=== PATIENT | male | born 1950 | race Caucasian/White ===

== ENCOUNTER → 2020-07-26 | Outpatient (CLI) | payer OTHER ==
[~2020-07-26] MED LIST: ALTACE10 MG PO; ASPIRIN325 PO; CARVEDILOL12.5 MG PO; CRESTOR10 MG PO; CRESTOR20 MG PO; EFFIENT10 MG PO; HYDROCHLOROTHIA25 M2 PO; METFORMIN HCL500 MG PO; POTASSIUM20 PO; WELCHOL 625 MG625 M1 PO; ZETIA10 MG PO
== END ==
LOC: SJCVC 14:33
PROVIDERS: ATTEND Internal Medicine Cardiovascular Disease
DX: I25.10 Atherosclerotic heart disease of native coronary artery without angina pectoris (principal); I10 Essential (primary) hypertension; E78.00 Pure hypercholesterolemia, unspecified; R06.00 Dyspnea, unspecified; E78.5 Hyperlipidemia, unspecified; Z96.652 Presence of left artificial knee joint; Z95.5 Presence of coronary angioplasty implant and graft; Z88.0 Allergy status to penicillin; Z79.82 Long term (current) use of aspirin; Z79.899 Other long term (current) drug therapy; Z86.16 Personal history of COVID-19; Z87.891 Personal history of nicotine dependence; Z82.49 Family history of ischemic heart disease and other diseases of the circulatory system

== ENCOUNTER → 2020-09-09 | Outpatient (CLI) | payer OTHER | LOC: SJCVCIMAG 08:03 | PROVIDERS: ATTEND Internal Medicine Cardiovascular Disease | DX: I08.0 Rheumatic disorders of both mitral and aortic valves (principal); R06.00 Dyspnea, unspecified; I25.10 Atherosclerotic heart disease of native coronary artery without angina pectoris; I10 Essential (primary) hypertension; Z88.0 Allergy status to penicillin; Z95.5 Presence of coronary angioplasty implant and graft; Z79.899 Other long term (current) drug therapy ==

== ENCOUNTER 2020-09-16 06:57 | Observation (INO) | payer OTHER ==
[2020-09-16] VITALS (12 sets, daily range): BP systolic 123–156; BP diastolic 43–69
[~2020-09-16] VITALS: Ht 175.3 cm; Wt 103.0 kg
[2020-09-16] MEDS ORDERED: FISH OIL 1,001000 M3 PO (07:31)
[2020-09-16] MEDS ORDERED: VITAMIN B-1100 M2 PO (07:35)
[2020-09-16] MEDS ORDERED: VITAMIN D-40010 MCG PO (11:17)
--- NOTE | 2020-09-16 17:57 | NUR ---
PT. ARRIVED AT THE FLOOR AROUND 1100; PT. AOX4; NO C/O PAIN; EDUCATED ABOUT BED REST UNTIL 1300; ST. UNDERSTANDING; R. GROIN INCISION C/D/I; EDUCATED ABOUT HOLDING PRESSURE WHEN COUGHING OR LAGHING; ST. UNDERSTANDING; SR ON THE MONITOR; EDUCATED ABOUT FALL PRECAUTIONS; ST. UNDERSTANDING; ADMISSION PERFORMED; OFF OF BED REST AT 1300; ABLE TO AMBULATE WITHIN THE ROOM; NO HEMATOMA NOTICED OVER R. GROIN SIDE; MONITORING; VS WNL; ASSESSMENT CHARGED; FOLLOWING POC; WILL PASS ON REPORT;
[2020-09-17 04:45] VITALS: BP 142/66
[2020-09-17 05:03] LABS: HEMATOCRIT 38.2 % (42.0-52.0); HEMOGLOBIN 12.9 gm/dL (14.0-18.0); MCH 30.4 pg (26.0-34.0); MCHC 33.9 g/dL (28.0-37.0); MCV 89.8 fL (80.0-100.0); RBC 4.26 mil/uL (4.50-6.00); RDW 13.3 % (10.5-14.5); WBC 10.9 thou/uL (4.0-11.0)
[2020-09-17 05:22] LABS: ALBUMIN 3.7 g/dL (3.4-5.0); ANION GAP 9 mmol/L (7-16); BUN 12 mg/dL (7-18); CHLORIDE 103 mmol/L (98-107); CO2 26 mmol/L (21-32); CREATININE 0.9 mg/dL (0.7-1.3); GLUCOSE 137 mg/dL (74-106); POTASSIUM 4.1 mmol/L (3.5-5.1); SGOT 21 U/L (15-37); SGPT 44 U/L (16-63); SODIUM 138 mmol/L (136-145); TOTAL BILIRUBIN 0.6 mg/dL (0.2-1.0); TROPONIN-I <0.06 ng/mL (<0.06)
--- NOTE | 2020-09-17 07:55 | EKG ---
[address] [place] [address] ELECTROCARDIOGRAM REPORT Name: JIM HOPE Room #: 208-[facility] M.R.#: [id number] Admission: 09/16/20 Attend Phys: Pito Harrison MD, Discharge: Date of : 54 Report #: [id number] [facility] [place] Test Date: 2020-09-17 Test Time: 07:14:31 Pat Name: JIM HOPE Department: Room: 208 P Gender: M [employer] Education Kindergarten Teacher: HARRISON : 1950 Requested By: Fernanda Hua Order Number: [id number] MD: Miguel A Najera Measurements Intervals [place] Rate: 64 P: 10 [place]: 192 QRS: -20 QRSD: 91 T: 50 QT: 415 QTc: 428 Interpretive Statements Sinus rhythm Borderline left axis deviation Compared to ECG 08/25/2015 07:49:49 No significant change was found Electronically Signed On 09-17-2020 7:55:40 CDT by Miguel A Najera [email or web address] <ELECTRONICALLY SIGNED> By: Miguel A Najera MD, [facility] 09/17/20 0755 3 3 Miguel A Najera MD, [facility] /EPI
[2020-09-17 11:10] VITALS: BP 186/72
--- NOTE | 2020-09-17 11:11 | NUR ---
PT DISCHARGING HOME WITH , DISCHARGE INSTRUCTION READ AND GAVE TO PT. NO QUESTIONS AT THIS TIME, IV CATH REMOVED, CATH IN TACT WITH NO SIGNS OF INFECTION AT THIS TIME. R GROIN SITE C.D.I. PT LEFT UNIT VIA W/C
--- NOTE | 2020-09-17 11:39 | NUR ---
discussed during los, dc today. no anticipated dc needs. dcp home with .
--- NOTE | 2020-09-17 16:08 | CATHLAB ---
[facility] [place] [address] INVASIVE PROCEDURE REPORT Name: JIM HOPE Room #: 208-P [facility] Benjamin MBernaRBerna#: [id number] Admission: 09/16/20 Attend Phys: Pito Harrison MD, Discharge: 09/17/20 Date of : 54 Report #: [id number] THIS REPORT FOR: cc: Gualberto Arteaga MD, James A. MD Mancuso, Gerald M. MD [facility] ~ APPROVED REPORT Study performed: 09/16/2020 08:02:53 Patient Details Patient Status: Out-Patient Room #: The patient is a 69 year-old male Event Personnel Pito Harrison Professional Advisor, Noah Aj RN RN, Fabian Carreno RTR Scrub, Amaya Dominguez RTR Monitor, Maria E Martinez RTR Chess Instructor Procedures Performed Art Access - R femoral artery* Left Heart Cath w/or w/o Coronaries [id number] [facility] Aortogram Abdominal Peripheral Angio 949061 [address] Place w/wo Plasty Single RCA 450795 23972 Initial Mod Sed Same Phys/QHP Gr5y 151510 80762 Mod Sed Same Phys/QHP Ea 412169 Hemostasis w/ Mynx Indication Chest pain Procedure Narrative The Right Groin^ was infiltrated with 1% Lidocaine subcutaneous anesthesia. A PINNACLE 6FR Sheath #[id number] sheath was inserted into the RFA^. Coronary angiography was performed using coronary diagnostic catheters. The right coronary system was accessed and visualized with a JR4 catheter. The left coronary system was accessed and visualized with a JL4 catheter. The left ventricle was accessed and visualized with a PIGTAIL catheter. Left ventriculogram was performed in 30 degree projection. An aortogram of the abdominal aorta was performed. Closure device was deployed with a 6 Fr MYNXGRIP 6/7F #[id number]. The patient tolerated the procedure well and there were no complications associated with the procedure. There was no hematoma. Intraoperative Conscious Sedation [facility] [address] [place] [address] INVASIVE PROCEDURE REPORT Name: HERMINIAJIM Room #: 208-P [facility] IN [facility].#: [id number] Admission: 09/16/20 Attend Phys: Pito Harrison, Discharge: 09/17/20 Date of : 54 Report #: [id number] Sedation start time: 844 Case end Time: 957 Fentanyl 50 mcg Versed 1 mg Fluoro Time: 10.09 minutes Dose: DAP 18265.90 cGycm2 2493 mGy Contrast Type and Amount: Omnipaque 185 ml Hemodynamics The aortic pressure is 121/47 mmHg with a mean of 64 mmHg. The left ventricular pressure is 130/13 mmHg with a mean of mmHg. The left ventricular end diastolic pressure is 22 mmHg. PCI Technique Lesion Percutaneous coronary intervention was performed on the mid right coronary artery. A LAUNCHER 6FR 3DRC #[id number] Guide Catheter was used to engage the ostium. A Luge Wire .014 x 182CM #[id number] Interventional Guidewire was used to cross the lesion. BALLOON DILATION A Balloon catheter Sprinter OTW 2.75 x 12 #[id number] was inserted and inflated up to 12.00atm for 26seconds. Additional Inflation: 14.00atm for 8seconds. Additional Inflation: 10.00atm for 10seconds. ADDITIONAL INFLATIONS WERE 20 HANSA/27 SECS/MINS AND 18 HANSA/27 SECS/MINS STENT DEPLOYMENT A drug-eluting stent RESOLUTE KATIE OTW 3.0 X 12 #[id number] was inserted and inflated up to 18.00atm for 33seconds. POST STENT DEPLOYMENT BALLOON DILATION A Balloon catheter TREK NC OTW 3.25 X 12 #[id number] was inserted and inflated up to 24.00atm for 27seconds. Additional Inflation: 24.00atm for 25seconds. Additional Inflation: 24.00atm for 31seconds. PCI Technique Lesion 2 Percutaneous Coronary Intervention was performed on the proximal right coronary artery. A LAUNCHER 6FR 3DRC #[id number] Guide Catheter was used to engage the ostium. A Luge Wire .014 x 182CM #[id number] Interventional Guidewire was used to cross the lesion. Balloon Dilation A Balloon catheter TREK NC OTW 3.25 X 12 #[id number] was inserted and inflated up to 24atm for 31seconds. Stent Deployment A drug-eluting stent RESOLUTE KATIE OTW 3.5 X 8 #[id number] was inserted [address] [address] INVASIVE PROCEDURE REPORT Name: JIM HOPE Room #: 208-P [facility] [place] M.R.#: [id number] Admission: 09/16/20 Attend Phys: Pito Harrison, Discharge: 09/17/20 Date of : 54 Report #: [id number] and inflated up to 20atm for 33seconds. Post Stent Deployment Balloon Dilation A Balloon catheter TREK NC OTW 3.75 X 12 #[id number] was inserted and inflated up to 20atm for 26seconds. Additional Inflation: 22atm for 19seconds. Conclusion #1. Successful PTCA stent of a subtotaled mid RCA in-stent restenosis. Placement of a 3.5 x 8 resolute stent postdilated with a noncompliant 3.75 to 3.8 mm KASHMIR grade III flow. #2 successful PTCA stent of in-stent restenosis in the distal third of this dominant right coronary artery 90% to 20% with placement of a 3 oh by 12 resolute Katie postdilated with a 3.259 compliant to 3.4 mm KASHMIR grade III flow in a large dominant vessel with moderate distal disease. #3 left main mildly calcified giving rise to LAD and circumflex. #4 the LAD is moderately calcified with 4050% proximal irregularities and a smaller attenuated vessel distally which stops short of the apex. #5 a ramus branch is noted with moderate disease and moderate distribution then collateral filling to the PDA via the ramus branch. Competitively filling this PDA #6 small nondominant circumflex mild disease #7 normal left jugular size and systolic function EF 60%. No wall motion abnormality is noted. #8 normal caliber abdominal aorta no evidence of aneurysm. Recommendations and plan: Continue aggressive risk factor modification dual antiplatelet therapy has been reinitiated for these 2 areas of in-stent restenosis which were treated with repeat stenting. The prior procedure in 2016 was PTCA only of this in-stent restenosis. Marked improvement in distal flow no further competitive filling of the PDA. LV function is preserved. To the CCU to follow post coronary stent protocol. <ELECTRONICALLY SIGNED> By: Pito Harrison MD, FACC 09/17/20 1608 1608 1608 Pito Harrison MD, FAC /INF
== END 2020-09-17 11:40 | disposition home or self-care (01) ==
LOC: CATH 06:57 → 2N 11:11
PROVIDERS: Nurse Practitioner Adult Health; ADMIT Internal Medicine Cardiovascular Disease; ATTEND Internal Medicine Cardiovascular Disease
DX: I25.10 Atherosclerotic heart disease of native coronary artery without angina pectoris (principal); I10 Essential (primary) hypertension; E78.5 Hyperlipidemia, unspecified; E11.9 Type 2 diabetes mellitus without complications; E78.00 Pure hypercholesterolemia, unspecified; Z87.891 Personal history of nicotine dependence; Z79.84 Long term (current) use of oral hypoglycemic drugs; Z79.899 Other long term (current) drug therapy; Z95.818 Presence of other cardiac implants and grafts